=== PATIENT | male | born 1960 | race Caucasian/White ===

== ENCOUNTER 2019-06-13 02:28 | Emergency (ER) | payer SELFPAY ==
[~2019-06-13] VITALS: Ht 177.8 cm; Wt 81.8 kg
[2019-06-13] MEDS ORDERED: PERTUSS(ACELL),DIPH,TET VAC/PF 0.5 ML VIAL IM ONE (03:30)
[2019-06-13 07:06] VITALS: BP 146/90
== END 2019-06-13 08:16 | disposition left against medical advice (07) ==
LOC: EMS 02:30
DX: S62.344A Nondisplaced fracture of base of fourth metacarpal bone, right hand, initial encounter for closed fracture (principal); S52.002A Unspecified fracture of upper end of left ulna, initial encounter for closed fracture; S62.644A Nondisplaced fracture of proximal phalanx of right ring finger, initial encounter for closed fracture; Y00.XXXA Assault by blunt object, initial encounter; Y93.89 Activity, other specified; Y92.89 Other specified places as the place of occurrence of the external cause; Y99.8 Other external cause status
CPT/HCPCS: 26605; 90715